=== PATIENT | female | born 1965 | race Caucasian/White ===

== ENCOUNTER 2016-11-19 16:41 | Emergency (ER) | payer BC ==
[2016-11-19] MEDS ORDERED: NAPROXEN 250 MG TAB As Ordered ONE (19:40)
--- NOTE | 2016-11-19 19:55 | EDDOCDS ---
Physician Documentation [facility] Name: Reentta Clement Age: 51 yrs Sex: Female : 1965 Arrival Date: 11/19/2016 Time: 16:41 Bed I9 / 22 Private MD: Yennifer Logan M. Disposition: 11/19/16 19:38 Discharged to Home/Self Care. Impression: Contusion of unspecified knee - bilateral, Abrasion of knee - right, Strain of muscle, fascia and tendon of lower back, Strain of unspecified muscle and tendon at ankle and foot level, right foot. - Condition is Stable. - Discharge Instructions: Abrasion, Back Pain, Adult, Contusion, Foot Sprain, Elastic Bandage and RICE, Back Exercises, [id number]. - Medication Reconciliation, Local Pharmacy Hours, Work Release Form - 1 day form. - Follow up: Yennifer Logan; When: 1 week; Reason: Recheck today's complaints, Continuance of care, If not improving. - Problem is new. - Symptoms have improved. - Notes: Return to the ED for any further concerns Historical: - Allergies: no known allergies; - Home Meds: 1. lisinopril 20 mg Oral tab 1 tab once daily (Last dose: 11/16/2016) 2. hydrochlorothiazide 25 mg Oral tab 1 tab once daily (Last dose: 11/17/2016) 3. levofloxacin 750 mg Oral tab 1 tab once daily 4. medrol dose pack 5. Robitussin PE 30-100 mg/5 mL Oral syrp 10 mL every 4 hours as needed - PMHx: Hypertension; recent diagnosis of bronchitis; - PSHx: Hysterectomy; D & C; Tonsillectomy; - Social history: Smoking status: Patient states was never smoker of tobacco. No barriers to communication noted, The patient speaks fluent Indonesian, Speaks appropriately for age. - Family history: Not pertinent. - : The pt / caregiver states he / she is not on anticoagulants. Home medication list is obtained from the patient. - Exposure Risk Screening:: None identified. 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 8 in. (172.72 cm) (R); 16:42 Body Mass Index 39.99 (119.29 kg, 172.72 cm) elp MDM: 19:29 Wound Care ordered. le 19:29 Naproxen 500 mg PO once; administer with food or milk ordered. le 19:29 Brandin Wrap ordered. le Administered Medications: 19:48 Drug: Naproxen 500 mg [naproxen 250 mg tablet (2 tabs)] Route: PO; cf2 19:54 Follow up: Response: Pain is decreased cf2 Signatures: Mary Sanders, SHERRY HEAD IRRIGATOR Char Gallagher RN RN hs1 Iliana Anton,RN RN cf2 MTDD
--- NOTE | 2016-11-19 19:55 | EDDOCDS ---
Nurse's Notes [facility] Name: Renetta Clement Age: 51 yrs Sex: Female : 1965 Arrival Date: 11/19/2016 Time: 16:41 Bed I9 / Private MD: Yennifer Logan M. 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 Patient sent in because it happened on work. Adult Sepsis Screening: The patient does not have new or worsening altered mentation. Patient's respiratory rate is less than 22. Systolic blood pressure is greater than 100. Patient has a qSOFA score of 0- Negative Sepsis Screen. Suicide/Homicide risk assessment- the patient denies having any suicidal and/or homicidal ideations and does not present with any other emotional, behavioral or mental health complaints. 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 Transition of care: patient was not received from another setting of care. 16:59 Acuity: DOTTIE Level 4 hs1 16:59 Method Of Arrival: Walkin/Carried/Asstd hs1 Triage Assessment: 17:03 General: Appears in no apparent distress, Behavior is appropriate for age, cooperative. hs1 Pain: Location: right knee and left knee Pain currently is 4 out of 10 on a pain scale. Pt Declines HIV testing. Musculoskeletal: Capillary refill < 3 seconds Range of motion intact in all extremities. 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 lisinopril 20 mg Oral tab 1 tab once daily (Last dose: 11/16/2016) 2. hydrochlorothiazide 25 mg Oral tab 1 tab once daily (Last dose: 11/17/2016) 3. levofloxacin 750 mg Oral tab 1 tab once daily 4. medrol dose pack 5. Robitussin PE 30-100 mg/5 mL Oral syrp 10 mL every 4 hours as needed - PMHx: Hypertension; recent diagnosis of bronchitis; - PSHx: Hysterectomy; D & C; Tonsillectomy; - Social history: Smoking status: Patient states was never smoker of tobacco. No barriers to communication noted, The patient speaks fluent Kuwaiti, Speaks appropriately for age. - Family history: Not pertinent. - : The pt / caregiver states he / she is not on anticoagulants. Home medication list is obtained from the patient. - Exposure Risk Screening:: None identified. Screenin:48 Screening information is obtained from the patient. Fall risk: No risks identified. cf2 Assistance ADL's: requires no assistance with activities of daily living. Abuse/DV Screen: The patient / caregiver reports he/she is: not in a situation that causes fear, pain or injury. Nutritional screening: No deficits noted. Advance Directives: Further advance directive information is declined. home support is adequate. Assessment: 19:48 Derm: small 2cm abrasion to right knee No bleeding. Musculoskeletal: Circulation, cf2 motion, and sensation intact Capillary refill < 3 seconds Range of motion intact in all extremities. Trachea midline. Vital Signs: 16:42 BP 163 / 85; Pulse 72; Resp 16; Temp 98.6(O); Pulse Ox 98% on R/A; Weight 119.29 kg el (R); Height 5 ft. 8 in. (172.72 cm) (R); 16:42 Body Mass Index 39.99 (119.29 kg, 172.72 cm) [facility] Vitals: 16:42 Log In Time: November 19, 2016 at 16:35. [facility] ED Course: 16:42 Patient visited by Susanna Torres PCA. elp 16:42 Yennifer Logan is Private Physician. elp 16:42 Patient moved to Waiting elp 16:43 Patient visited by Susanna Torres PCA. elp 16:43 Patient moved to Pre RCE elp 17:00 Triage Initiated hs1 18:44 Patient moved to I9 / 22 mlb1 18:49 [facility] le 18:50 Patient visited by Mary Sanders FNP. le 18:50 Patient visited by Mary Sanders FNP. le 19:37 Yennifer Logan is Referral Physician. le 19:38 Iliana Anton,BIBI is Primary Nurse. cf2 19:38 Patient visited by Familetti-Ernesto,Iliana,RN. cf2 19:48 The patient / caregiver is instructed regarding the plan of care and ED course. Patient cf2 has correct armband on for positive identification. Bed in low position. Call light in reach. Door closed. Noise minimized. Visitors limited. Lights dimmed. Moved to private room. PO fluids given. Head of bed elevated. 19:48 No IV's were initiated during this patient's visit. No procedures done that require cf2 assistance. 19:54 Patient visited by Iliana Anton RN. cf2 19:54 Tony Corona MD is Attending Physician. cf2 Administered Medications: 19:48 Drug: Naproxen 500 mg [naproxen 250 mg tablet (2 tabs)] Route: PO; cf2 19:54 Follow up: Response: Pain is decreased cf2 Order Results: There are currently no results for this order. Outcome: 19:38 Discharge ordered by Provider. le 19:48 Discharge Assessment: Patient awake, alert and oriented x 3. No cognitive and/or cf2 functional deficits noted. Patient verbalized understanding of disposition instructions. Patient awake and alert. Oriented to person, place and time. patient administered narcotics - no. The following High Risk Discharge criteria are identified: None. Discharged to home ambulatory. Condition: good Condition: stable Condition: improved. Discharge instructions given to patient, Instructed on discharge instructions, follow up and referral plans. Demonstrated understanding of instructions, medications. No special radiology studies were completed. Property :Personal belongings accompany Pt. 19:54 Patient left the ED. cf2 Signatures: Juan Daniel Hill RN RN mlb1 Mary Sanders, PULP PLANT SUPERVISOR PULP PLANT SUPERVISOR Char Gallagher RN RN hs1 Susanna Torres, ANNUAL GIVING OFFICER ANNUAL GIVING OFFICER elp Iliana Anton,RN RN cf2 MTDD
[2016-11-20] MEDS ORDERED: METAL LOCK LOOP XX ONE (03:09)
--- NOTE | 2016-11-21 20:55 | EDDOCDS ---
Physician Documentation [facility] Name: Renetta Clement Age: 51 yrs Sex: Female : 1965 Arrival Date: 11/19/2016 Time: 16:41 Bed I9 / 22 Private MD: Yennifer Logan M. Disposition: 11/19/16 19:38 Discharged to Home/Self Care. Impression: Contusion of unspecified knee - bilateral, Abrasion of knee - right, Strain of muscle, fascia and tendon of lower back, Strain of unspecified muscle and tendon at ankle and foot level, right foot. - Condition is Stable. - Discharge Instructions: Abrasion, Back Pain, Adult, Contusion, Foot Sprain, Elastic Bandage and RICE, Back Exercises, [id number]. - Medication Reconciliation, Local Pharmacy Hours, Work Release Form - 1 day form. - Follow up: Yennifer Logan; When: 1 week; Reason: Recheck today's complaints, Continuance of care, If not improving. - Problem is new. - Symptoms have improved. - Notes: Return to the ED for any further concerns Historical: - Allergies: no known allergies; - Home Meds: 1. lisinopril 20 mg Oral tab 1 tab once daily (Last dose: 11/16/2016) 2. hydrochlorothiazide 25 mg Oral tab 1 tab once daily (Last dose: 11/17/2016) 3. levofloxacin 750 mg Oral tab 1 tab once daily 4. medrol dose pack 5. Robitussin PE 30-100 mg/5 mL Oral syrp 10 mL every 4 hours as needed - PMHx: Hypertension; recent diagnosis of bronchitis; - PSHx: Hysterectomy; D & C; Tonsillectomy; - Social history: Smoking status: Patient states was never smoker of tobacco. No barriers to communication noted, The patient speaks fluent [place] Islander, Speaks appropriately for age. - Family history: Not pertinent. - : The pt / caregiver states he / she is not on anticoagulants. Home medication list is obtained from the patient. - Exposure Risk Screening:: None identified. 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 8 in. (172.72 cm) (R); 16:42 Body Mass Index 39.99 (119.29 kg, 172.72 cm) elp MDM: 19:29 Wound Care ordered. le 19:29 Naproxen 500 mg PO once; administer with food or milk ordered. le 19:29 Brandin Wrap ordered. le 11/20 09:38 T-Sheet-- Draft Copy was scanned into [employer] and attached to record. gb Administered Medications: 11/19 19:48 Drug: Naproxen 500 mg [naproxen 250 mg tablet (2 tabs)] Route: PO; cf2 19:54 Follow up: Response: Pain is decreased cf2 Signatures: Merlyn Harvey, Reg Reg gb Mary Sanders, EXCELSIOR PICKER EXCELSIOR PICKER Char Gallagher RN RN hs1 Iliana AntonRN RN cf2 The chart was reviewed and I authenticate all verbal orders and agree with the evaluation and treatment provided.Attachments: 11/20 09:38 T-Sheet-- Draft Copy gb Chart Complete MTDD
--- NOTE | 2016-11-21 20:55 | EDDOCDS ---
Physician Documentation [facility] Name: Renetta Clement Age: 51 yrs Sex: Female : 1965 Arrival Date: 11/19/2016 Time: 16:41 Bed I9 / 22 Private MD: Yennifer Logan M. Disposition: 11/19/16 19:38 Discharged to Home/Self Care. Impression: Contusion of unspecified knee - bilateral, Abrasion of knee - right, Strain of muscle, fascia and tendon of lower back, Strain of unspecified muscle and tendon at ankle and foot level, right foot. - Condition is Stable. - Discharge Instructions: Abrasion, Back Pain, Adult, Contusion, Foot Sprain, Elastic Bandage and RICE, Back Exercises, [id number]. - Medication Reconciliation, Local Pharmacy Hours, Work Release Form - 1 day form. - Follow up: Yennifer Logan; When: 1 week; Reason: Recheck today's complaints, Continuance of care, If not improving. - Problem is new. - Symptoms have improved. - Notes: Return to the ED for any further concerns Historical: - Allergies: no known allergies; - Home Meds: 1. lisinopril 20 mg Oral tab 1 tab once daily (Last dose: 11/16/2016) 2. hydrochlorothiazide 25 mg Oral tab 1 tab once daily (Last dose: 11/17/2016) 3. levofloxacin 750 mg Oral tab 1 tab once daily 4. medrol dose pack 5. Robitussin PE 30-100 mg/5 mL Oral syrp 10 mL every 4 hours as needed - PMHx: Hypertension; recent diagnosis of bronchitis; - PSHx: Hysterectomy; D & C; Tonsillectomy; - Social history: Smoking status: Patient states was never smoker of tobacco. No barriers to communication noted, The patient speaks fluent Icelandic, Speaks appropriately for age. - Family history: Not pertinent. - : The pt / caregiver states he / she is not on anticoagulants. Home medication list is obtained from the patient. - Exposure Risk Screening:: None identified. 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 8 in. (172.72 cm) (R); 16:42 Body Mass Index 39.99 (119.29 kg, 172.72 cm) elp MDM: 19:29 Wound Care ordered. le 19:29 Naproxen 500 mg PO once; administer with food or milk ordered. le 19:29 Brandin Wrap ordered. le 11/20 09:38 T-Sheet-- Draft Copy was scanned into [employer] and attached to record. gb Administered Medications: 11/19 19:48 Drug: Naproxen 500 mg [naproxen 250 mg tablet (2 tabs)] Route: PO; cf2 19:54 Follow up: Response: Pain is decreased cf2 Signatures: Merlyn Harvey, Reg Reg gb Mary Sanders, CARDIOLOGY CONSULTANT CARDIOLOGY CONSULTANT Char Gallagher RN RN hs1 Iliana AntonRN RN cf2 The chart was reviewed and I authenticate all verbal orders and agree with the evaluation and treatment provided.Attachments: 11/20 09:38 T-Sheet-- Draft Copy gb Chart Complete MTDD
--- NOTE | 2016-11-21 20:55 | EDDOCDS ---
Nurse's Notes [facility] Name: Renetta Clement Age: 51 yrs Sex: Female : 1965 Arrival Date: 11/19/2016 Time: 16:41 Bed I9 / Private MD: Yennifer Logan M. 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 Patient sent in because it happened on work. Adult Sepsis Screening: The patient does not have new or worsening altered mentation. Patient's respiratory rate is less than 22. Systolic blood pressure is greater than 100. Patient has a qSOFA score of 0- Negative Sepsis Screen. Suicide/Homicide risk assessment- the patient denies having any suicidal and/or homicidal ideations and does not present with any other emotional, behavioral or mental health complaints. 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 Transition of care: patient was not received from another setting of care. 16:59 Acuity: DOTTIE Level 4 hs1 16:59 Method Of Arrival: Walkin/Carried/Asstd hs1 Triage Assessment: 17:03 General: Appears in no apparent distress, Behavior is appropriate for age, cooperative. hs1 Pain: Location: right knee and left knee Pain currently is 4 out of 10 on a pain scale. Pt Declines HIV testing. Musculoskeletal: Capillary refill < 3 seconds Range of motion intact in all extremities. 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 lisinopril 20 mg Oral tab 1 tab once daily (Last dose: 11/16/2016) 2. hydrochlorothiazide 25 mg Oral tab 1 tab once daily (Last dose: 11/17/2016) 3. levofloxacin 750 mg Oral tab 1 tab once daily 4. medrol dose pack 5. Robitussin PE 30-100 mg/5 mL Oral syrp 10 mL every 4 hours as needed - PMHx: Hypertension; recent diagnosis of bronchitis; - PSHx: Hysterectomy; D & C; Tonsillectomy; - Social history: Smoking status: Patient states was never smoker of tobacco. No barriers to communication noted, The patient speaks fluent Bermudian, Speaks appropriately for age. - Family history: Not pertinent. - : The pt / caregiver states he / she is not on anticoagulants. Home medication list is obtained from the patient. - Exposure Risk Screening:: None identified. Screenin:48 Screening information is obtained from the patient. Fall risk: No risks identified. cf2 Assistance ADL's: requires no assistance with activities of daily living. Abuse/DV Screen: The patient / caregiver reports he/she is: not in a situation that causes fear, pain or injury. Nutritional screening: No deficits noted. Advance Directives: Further advance directive information is declined. home support is adequate. Assessment: 19:48 Derm: small 2cm abrasion to right knee No bleeding. Musculoskeletal: Circulation, cf2 motion, and sensation intact Capillary refill < 3 seconds Range of motion intact in all extremities. Trachea midline. Vital Signs: 16:42 BP 163 / 85; Pulse 72; Resp 16; Temp 98.6(O); Pulse Ox 98% on R/A; Weight 119.29 kg el (R); Height 5 ft. 8 in. (172.72 cm) (R); 16:42 Body Mass Index 39.99 (119.29 kg, 172.72 cm) [facility] Vitals: 16:42 Log In Time: November 19, 2016 at 16:35. [facility] ED Course: 16:42 Patient visited by Susanna Torres PCA. elp 16:42 Yennifer Logan is Private Physician. elp 16:42 Patient moved to Waiting elp 16:43 Patient visited by Susanna Torres PCA. elp 16:43 Patient moved to Pre RCE elp 17:00 Triage Initiated hs1 18:44 Patient moved to I9 / 22 mlb1 18:49 [facility]NP [facility] le 18:50 Patient visited by Mary Sanders FNP. le 18:50 Patient visited by Mary Sanders FNP. le 19:37 Yennifer Logan is Referral Physician. le 19:38 Iliana Anton,BIBI is Primary Nurse. cf2 19:38 Patient visited by Familetti-Ernesto,Iliana,RN. cf2 19:48 The patient / caregiver is instructed regarding the plan of care and ED course. Patient cf2 has correct armband on for positive identification. Bed in low position. Call light in reach. Door closed. Noise minimized. Visitors limited. Lights dimmed. Moved to private room. PO fluids given. Head of bed elevated. 19:48 No IV's were initiated during this patient's visit. No procedures done that require cf2 assistance. 19:54 Patient visited by Iliana Anton RN. cf2 19:54 Tony Corona MD is Attending Physician. cf2 02 09:38 T-Sheet-- Draft Copy was scanned into [employer] and attached to record. gb Administered Medications: 11/19 19:48 Drug: Naproxen 500 mg [naproxen 250 mg tablet (2 tabs)] Route: PO; cf2 19:54 Follow up: Response: Pain is decreased cf2 Order Results: There are currently no results for this order. Outcome: 19:38 Discharge ordered by Provider. le 19:48 Discharge Assessment: Patient awake, alert and oriented x 3. No cognitive and/or cf2 functional deficits noted. Patient verbalized understanding of disposition instructions. Patient awake and alert. Oriented to person, place and time. patient administered narcotics - no. The following High Risk Discharge criteria are identified: None. Discharged to home ambulatory. Condition: good Condition: stable Condition: improved. Discharge instructions given to patient, Instructed on discharge instructions, follow up and referral plans. Demonstrated understanding of instructions, medications. No special radiology studies were completed. Property :Personal belongings accompany Pt. 19:54 Patient left the ED. cf2 Signatures: Merlyn Harvey, Reg Reg Juan Daniel Stallworth RN RN mlb1 Mary Sanders FNP Char Aly RN RN hs1 Susanna Torres, BONE CHAR KILN OPERATOR BONE CHAR KILN OPERATOR elp Iliana Anton,BIBI RN cf2 Chart Complete MTDD
== END 2016-11-19 19:54 | disposition home or self-care (01) ==
LOC: M ED 16:41
DX: S80.02XA Contusion of left knee, initial encounter (principal); S80.01XA Contusion of right knee, initial encounter; S80.211A Abrasion, right knee, initial encounter; S93.601A Unspecified sprain of right foot, initial encounter; S33.9XXA Sprain of unspecified parts of lumbar spine and pelvis, initial encounter; W01.0XXA Fall on same level from slipping, tripping and stumbling without subsequent striking against object, initial encounter; Y92.019 Unspecified place in single-family (private) house as the place of occurrence of the external cause; Y93.01 Activity, walking, marching and hiking; Y99.8 Other external cause status; I10 Essential (primary) hypertension; Z79.899 Other long term (current) drug therapy

== ENCOUNTER → 2019-03-26 | Outpatient (REF) | payer BC ==
[2019-03-26 10:30] LABS: BASO % 0.3 % (0.0-1.0); EOS # 0.3 10^3/uL (0.0-0.50); EOS % 3.6 % (0.0-3.0); HEMATOCRIT 44.8 % (36.0-47.0); HEMOGLOBIN 14.6 g/dl (12.0-15.5); LYMPH # 2.1 10^3/uL (1.5-4.5); LYMPH % 28.3 % (24.0-44.0); MEAN CORPUSCULAR HEMOGLOBIN 31.4 pg (27.0-33.0); MEAN CORPUSCULAR HGB CONC 32.6 g/dl (32.0-36.5); MEAN CORPUSCULAR VOLUME 96.3 fl (80.0-96.0); MONO # 0.5 10^3/uL (0.0-0.8); MONO % 6.2 % (0.0-5.0); NEUTROPHILS # 4.4 10^3/uL (1.8-7.7); NEUTROPHILS % 61.2 % (36.0-66.0); PLATELET COUNT, AUTOMATED 291 10^3/uL (150-450); RED BLOOD COUNT 4.65 10^6/uL (4.00-5.40); WHITE BLOOD COUNT 7.3 10^3/uL (4.0-10.0)
[2019-03-26 10:59] LABS: HEMOGLOBIN A1c 5.9 %
[2019-03-26 11:18] LABS: ALBUMIN 3.5 GM/DL (3.2-5.2); ALT/SGPT 49 U/L (12-78); BILIRUBIN,TOTAL 0.4 MG/DL (0.2-1.0); BLOOD UREA NITROGEN 12 MG/DL (7-18); CALCIUM LEVEL 9.3 MG/DL (8.5-10.1); CARBON DIOXIDE LEVEL 31 MEQ/L (21-32); CHLORIDE LEVEL 102 MEQ/L (98-107); CHOLESTEROL LEVEL 210 MG/DL (<200); CHOLESTEROL RISK RATIO 4.285 (<5); CREATININE FOR GFR 0.91 MG/DL (0.55-1.30); GLOMERULAR FILTRATION RATE > 60.0 (>51); GLUCOSE, FASTING 83 MG/DL (70-100); HDL CHOLESTEROL 49 MG/DL (>40); LDL CHOLESTEROL 119 MG/DL (<100); NON-HDL-C 161 MG/DL; POTASSIUM SERUM 4.3 MEQ/L (3.5-5.1); SODIUM LEVEL 140 MEQ/L (136-145); TOTAL PROTEIN 7.4 GM/DL (6.4-8.2); TRIGLYCERIDES LEVEL 210 MG/DL (<150)
== END ==
LOC: M LAB REF 09:58
PROVIDERS: ATTEND Nurse Practitioner Adult Health
DX: I10 Essential (primary) hypertension (principal); Z83.42 Family history of familial hypercholesterolemia; Z83.3 Family history of diabetes mellitus

== ENCOUNTER → 2019-07-15 | Outpatient (REF) | payer BC ==
[2019-07-15 15:25] LABS: BLOOD UREA NITROGEN 13 MG/DL (7-18); CREATININE FOR GFR 0.92 MG/DL (0.55-1.30); GLOMERULAR FILTRATION RATE > 60.0 (>51); RHEUMATOID FACTOR QUANT < 10.0 IU/ML (<15.0); TOTAL PROTEIN 7.6 GM/DL (6.4-8.2)
[2019-07-15 15:37] LABS: FOLATE 19.8 NG/ML; VITAMIN B12 LEVEL 339 PG/ML
[2019-07-20 11:01] LABS: ANTI DOUBLE STRAND-DNA AB <1 IU/mL (0-9); ANTINUCLEAR ANTIBODIES DIRECT Positive (Negative); CERULOPLASMIN 24.8 mg/dL (19.0-39.0); COPPER PLASMA 107 ug/dL (72-166); RNP ANTIBODIES <0.2 AI (0.0-0.9); SJOGREN'S ANTI SS-A 3.4 AI (0.0-0.9); SJOGREN'S ANTI SS-B <0.2 AI (0.0-0.9); SMITH ANTIBODIES <0.2 AI (0.0-0.9); VITAMIN B1 LEVEL WHOLE BLOOD 139.8 nmol/L (66.5-200.0); VITAMIN B6,PYRIDOXAL PHOSPHATE 4.2 ug/L (2.0-32.8); VITAMIN E(ALPHA TOCOPHEROL) 10.2 mg/L (7.0-25.1); VITAMIN E(GAMMA TOCOPHEROL) 1.9 mg/L (0.5-5.5)
[2019-07-20 12:03] LABS: ALBUMIN 4.11 GM/DL (3.29-5.55); ALBUMIN % 54.1 % (55.8-66.1); ALPHA-2-GLOBULINS 0.89 GM/DL (0.42-0.99); ALPHA-2-GLOBULINS % 11.7 % (7.1-11.8); BETA-1-GLOBULINS 0.49 GM/DL (0.28-0.60); BETA-1-GLOBULINS % 6.4 % (4.7-7.2); BETA-2-GLOBULINS 0.46 GM/DL (0.19-0.55); GAMMA GLOBULIN % 17.8 % (11.1-18.8); GAMMA GLOBULINS 1.35 GM/DL (0.65-1.58)
== END ==
LOC: M LABNEURO 10:27
PROVIDERS: ATTEND Psychiatry & Neurology Neurology
DX: H53.9 Unspecified visual disturbance (principal); R20.2 Paresthesia of skin

== ENCOUNTER → 2020-02-01 | Outpatient (CLI) | payer BC | LOC: M LABSMTC 11:25 → EEVIPCON 11:25 | PROVIDERS: ATTEND Family Medicine | DX: Z11.59 Encounter for screening for other viral diseases (principal); Z20.828 Contact with and (suspected) exposure to other viral communicable diseases ==

== ENCOUNTER → 2021-09-18 | Outpatient (REF) | payer BC ==
[2021-09-18 09:58] LABS: HEMATOCRIT 45.2 % (36.0-47.0); HEMOGLOBIN 14.6 g/dl (12.0-15.5); MEAN CORPUSCULAR HEMOGLOBIN 30.2 pg (27.0-33.0); MEAN CORPUSCULAR HGB CONC 32.3 g/dl (32.0-36.5); MEAN CORPUSCULAR VOLUME 93.4 fl (80.0-96.0); PLATELET COUNT, AUTOMATED 348 10^3/uL (150-450); RED BLOOD COUNT 4.84 10^6/uL (4.00-5.40); WHITE BLOOD COUNT 8.7 10^3/uL (4.0-10.0)
[2021-09-18 10:32] LABS: MALB URINE SIEMENS 20.3 MG/L; MAU/CREAT RATIO 9.6 MCG/MG (0.0-30.0)
[2021-09-18 10:36] LABS: ALBUMIN 3.7 GM/DL (3.2-5.2); BILIRUBIN,TOTAL 0.4 MG/DL (0.2-1.0); CALCIUM LEVEL 9.8 MG/DL (8.5-10.1); CHOLESTEROL RISK RATIO 4.24 (<5); CREATININE FOR GFR 1.04 MG/DL (0.55-1.30); FREE T4 1.07 NG/DL (0.76-1.46); GLOMERULAR FILTRATION RATE 57.9 (>51); POTASSIUM SERUM 4.2 MEQ/L (3.5-5.1); THYROID STIMULATING HORMONE 1.35 uIU/ML (0.358-3.740); TOTAL PROTEIN 7.7 GM/DL (6.4-8.2)
== END ==
LOC: M LAB REF 09:29
PROVIDERS: ATTEND Physician Assistant
DX: I10 Essential (primary) hypertension (principal); Z13.220 Encounter for screening for lipoid disorders; Z13.1 Encounter for screening for diabetes mellitus; L68.0 Hirsutism; E66.01 Morbid (severe) obesity due to excess calories

== ENCOUNTER → 2023-01-10 | Outpatient (REF) | payer BC | LOC: M SFHCADAM 08:18 | PROVIDERS: ATTEND Physician Assistant | DX: I10 Essential (primary) hypertension (principal); Z12.4 Encounter for screening for malignant neoplasm of cervix; Z77.9 Other contact with and (suspected) exposures hazardous to health; Z01.419 Encounter for gynecological examination (general) (routine) without abnormal findings ==

== ENCOUNTER → 2023-04-07 | Outpatient (REF) | LOC: M EMP 08:40 | PROVIDERS: ATTEND Family Medicine | DX: Z11.52 Encounter for screening for COVID-19 (principal) ==

== ENCOUNTER → 2024-02-16 | Outpatient (REF) | LOC: M EMP 09:23 | PROVIDERS: ATTEND Family Medicine | DX: Z11.52 Encounter for screening for COVID-19 (principal) ==

== ENCOUNTER → 2024-07-07 | Outpatient (REF) | LOC: M EMP 08:55 | PROVIDERS: ATTEND Family Medicine | DX: Z11.52 Encounter for screening for COVID-19 (principal) ==